=== PATIENT | male | born 1960 | race Two or more races ===

== ENCOUNTER 2024-09-12 10:49 | Outpatient (REF) | payer MEDICAID, SELFPAY ==
--- NOTE | ~2024-09-12 | XR_ITS ---
EXAMINATION: XR KNEE, RIGHT CLINICAL INFORMATION: RIGHT KNEE PAIN X 3 MONTHS PAIN AND SWELLING -NON TRAUMATIC. COMPARISON: None available. TECHNIQUE: Four views of the right knee. FINDINGS: No fracture. Tiny posterior patellar spurring. Normal alignment. Joint spaces are preserved. Small suprapatellar joint effusion. XR/XR knee RT 4V IMPRESSION: Tiny posterior patellar spurring. Electronically signed by: Mercedes Medina MD 09/12/2024 11:25 AM EDT
== END 2024-09-12 10:50 | disposition home or self-care (01) ==
LOC: HO.HHCX 10:49
PROVIDERS: Visit Provider Family Medicine
DX: M25.561 Pain in right knee (principal); M79.89 Other specified soft tissue disorders
CPT/HCPCS: 36415; 73564; 80048

== ENCOUNTER → 2024-09-12 10:53 | Outpatient (BNV) | payer MEDICAID, SELFPAY | PROVIDERS: Visit Provider Radiology Body Imaging | DX: M25.561 Pain in right knee (principal) | CPT/HCPCS: 73564 ==

== ENCOUNTER 2024-09-12 11:33 | Outpatient (REF) | payer MEDICAID, SELFPAY ==
[2024-09-12 13:42] LABS: Anion Gap 12 (12-20); Blood Urea Nitrogen 14 mg/dL (9-16); Calcium 9.6 mg/dL (8.4-10.2); Carbon Dioxide 28 mmol/L (22-29); Chloride 105 mmol/L (96-108); Estimated Glomerular Filt Rate > 60; Potassium 4.0 mmol/L (3.3-5.1); Sodium 141 mmol/L (135-145)
== END 2024-09-12 11:34 | disposition home or self-care (01) ==
LOC: HO.HHCL 11:33
PROVIDERS: Visit Provider Family Medicine
DX: Z13.89 Encounter for screening for other disorder (principal)
CPT/HCPCS: 36415; 80048